=== PATIENT | male | born 1995 | race Two or more races ===

== ENCOUNTER 2016-04-03 23:01 | Emergency (ER) | payer SELFPAY ==
[2016-04-03 23:48] LABS: BASOPHILS 0.1 % (0.0-2.0); EOSINOPHILS 0.1 % (0-7); HEMATOCRIT 49.4 % (42.0-54.0); HEMOGLOBIN 16.8 g/dL (13.5-17.5); IMMATURE GRANULOCYTES 0.9 % (0-5); LYMPHOCYTES 11.1 % (15-50); MCH 29.6 pg (26.0-34.0); MCV 87.1 fL (80.0-100.0); MONOCYTES 3.5 % (2-11); NEUTROPHILS 84.3 % (40-80); PLATELET COUNT 175 10x3/uL (130-400); RBC 5.67 10x6/uL (4.20-6.10); RDW 12.9 % (11.5-14.5); WBC 13.9 10x3/uL (4.8-10.8)
[2016-04-04 00:07] LABS: ALBUMIN 5.1 g/dL (3.4-5.0); ALKALINE PHOSPHATASE 67 U/L (46-116); ALT (SGPT) 57 U/L (10-68); BILIRUBIN - TOTAL 1.07 mg/dL (0.2-1.3); CALC OSMOLALITY 283 mosm/kg (275-300); CALCIUM 9.3 mg/dL (8.5-10.1); CARBON DIOXIDE 24.7 mmol/L (21.0-32.0); CHLORIDE - SERUM 106 mmol/L (98-107); CREATININE - SERUM 0.6 mg/dL (0.6-1.3); GLUCOSE 111 mg/dL (74-106); POTASSIUM - SERUM 3.7 mmol/L (3.5-5.1); PROTEIN - SERUM 9.3 g/dL (6.4-8.2); SODIUM 143 mmol/L (136-145); UREA NITROGEN 6 mg/dL (7-18); eGFR NON AFRICAN AMERICAN > 90 mL/min (90-120)
[2016-04-04 00:13] LABS: AMYLASE - SERUM 42 U/L (25-115); LIPASE 135 U/L (73-393)
[2016-04-04 00:15] LABS: TROPONIN-I < 0.017 ng/mL (0.000-0.060)
== END 2016-04-04 02:08 | disposition home or self-care (01) ==
LOC: D.ER 23:01 → EDBD 23:01 → D.ER 04-04 02:08
PROVIDERS: Surgery
DX: F10.129 Alcohol abuse with intoxication, unspecified (principal); T14.8 Other injury of unspecified body region; V49.9XXA Car occupant (driver) (passenger) injured in unspecified traffic accident, initial encounter; Y93.89 Activity, other specified; Y92.410 Unspecified street and highway as the place of occurrence of the external cause; R00.0 Tachycardia, unspecified